=== PATIENT | female | born 1970 | race African-American/Black ===

== ENCOUNTER 2020-02-05 22:08 | Emergency (ER) | payer OTHER ==
[~2020-02-05] VITALS: Ht 172.7 cm; Wt 81.6 kg
[2020-02-05 22:25] VITALS: BP 132/71
== END 2020-02-05 23:00 | disposition home or self-care (01) ==
LOC: ER 22:08
DX: Z02.89 Encounter for other administrative examinations (principal); I10 Essential (primary) hypertension; J45.909 Unspecified asthma, uncomplicated; Z59.0 Homelessness

== ENCOUNTER 2020-02-06 10:18 | Emergency (ER) | payer OTHER ==
[~2020-02-06] VITALS: Ht 170.2 cm; Wt 81.6 kg
--- NOTE | 2020-02-06 10:36 | NUR ---
ROSLYN AGUILAR WITH PATIENT IN ROOM 18 FOR EVAL
--- NOTE | 2020-02-06 11:41 | NUR ---
CALLED [facility], [id number]. [facility]ER ADVICED US TO CALL [facility]
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
--- NOTE | 2020-02-06 13:15 | NUR ---
Patient discharged to home in stable condition. Written and verbal after care instructions given. Patient verbalizes understanding of instruction. Pt ambulatory with a steady gait
[2020-02-06 13:34] VITALS: BP 148/95
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
== END 2020-02-06 13:34 | disposition home or self-care (01) ==
LOC: ER 10:22
DX: Z00.00 Encounter for general adult medical examination without abnormal findings (principal); Z53.21 Procedure and treatment not carried out due to patient leaving prior to being seen by health care provider